=== PATIENT | male | born 1985 | race American Indian/Alaskan Native ===

== ENCOUNTER 2019-10-19 08:24 | Emergency (ER) | payer SELFPAY ==
[2019-10-19 08:32] VITALS: BP 134/70
[2019-10-19] MEDS ORDERED: HYDROcodone/ACETAMINOPHEN 5-325 MG TAB PO ONE (08:59)
[2019-10-19] MEDS ORDERED: IBUPROFEN 800 MG TAB PO ONE (08:59)
--- NOTE | 2019-10-19 09:44 | XRay Report ---
LEFT ANKLE 3 VIEWS INDICATION: Lateral ankle pain after injury. COMPARISON: None. IMPRESSION: No acute osseous or soft tissue abnormality. No significant DJD. Signer Name: Kumar Lovell Jr, MD Signed: 10/19/2019 9:40 AM Workstation Name: [id number]
--- NOTE | 2019-10-19 10:03 | Emergency Department Report ---
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 Patient states that his leg was briefly trapped. Patient has pain in the lateral left ankle with swelling. He is having difficulty walking ambulating. Pain is 8 out of 10 in severity. Severity scale (0 -10): 9 - Related Data Previous Rx's Medication Instructions Recorded Last Taken Type Ketorolac [Toradol] 10 mg PO Q6H PRN #12 tablet 10/19/19 Unknown Rx traMADoL [Ultram] 50 mg PO Q6HR PRN #12 tablet 10/19/19 Unknown Rx Allergies Allergy/AdvReac Type Severity Reaction Status Date / Time No Known Allergies Allergy Unverified 10/19/19 08:26 ED Review of Systems ROS: Stated complaint: LFT FOOT FORKLIFT INJURY/PAIN Other details as noted in HPI Comment: All other systems reviewed and negative ED Past Medical Hx - Past Medical History Previous Medical History?: No - Surgical History Past Surgical History?: No - Social History Smoking Status: Never Smoker Substance Use Type: Alcohol - Medications Home Medications: Home Medications Medication Instructions Recorded Confirmed Last Taken Type Ketorolac [Toradol] 10 mg PO Q6H PRN #12 tablet 10/19/19 Unknown Rx traMADoL [Ultram] 50 mg PO Q6HR PRN #12 tablet 10/19/19 Unknown Rx ED Physical Exam - General Limitations: Physical Limitation General appearance: alert, in no apparent distress - Head Head exam: Present: atraumatic, normocephalic - Eye Eye exam: Present: normal appearance - ENT ENT exam: Present: mucous membranes moist - Neck Neck exam: Present: normal inspection - Respiratory Respiratory exam: Present: normal lung sounds bilaterally. Absent: respiratory distress - Cardiovascular Cardiovascular Exam: Present: regular rate, normal rhythm. Absent: systolic murmur, diastolic murmur, rubs, gallop - GI/Abdominal GI/Abdominal exam: Present: soft, normal bowel sounds - Rectal Rectal exam: Present: deferred - Extremities Exam Extremities exam: Present: normal inspection - Expanded Lower Extremity Exam Left Ankle exam: Present: tenderness, swelling, ecchymosis. Absent: laceration, deformity, crepidus, dislocation - Back Exam Back exam: Present: normal inspection - Neurological Exam Neurological exam: Present: alert, oriented X3 - Psychiatric Psychiatric exam: Present: normal affect, normal mood - Skin Skin exam: Present: warm, dry, intact, normal color. Absent: rash ED Course Vital Signs 10/19/19 10/19/19 10/19/19 08:28 09:10 09:12 Temperature 98.1 F Pulse Rate 60 Respiratory 18 18 20 Rate Blood Pressure 134/70 O2 Sat by Pulse 100 Oximetry ED Medical Decision Making - Radiology Data Radiology results: report reviewed (XR shows no acute fracture), image reviewed - Medical Decision Making Patient is a 34-year-old male who is had his ankle injury as his forklift rolled back on his leg. No fractures seen on x-ray. Patient will be placed in a ankle steroid for support will be discharged home. Critical care attestation.: If time is entered above; I have spent that time in minutes in the direct care of this critically ill patient, excluding procedure time. ED Disposition Clinical Impression: Occupational injury Ankle contusion Qualifiers: Encounter type: initial encounter Laterality: left Qualified Code(s): S90.02XA - Contusion of left ankle, initial encounter Disposition: - TO HOME OR SELFCARE Is pt being admited?: No Does the pt Need Aspirin: No Condition: Stable Referrals: [email or web address] [Provider Group] - 3-5 Days Time of Disposition: 10:03
== END 2019-10-19 10:38 | disposition home or self-care (01) ==
LOC: ED 08:24
DX: S90.02XA Contusion of left ankle, initial encounter (principal); Z57.9 Occupational exposure to unspecified risk factor; Z79.899 Other long term (current) drug therapy